=== PATIENT | female | born 1995 | race Caucasian/White ===

== ENCOUNTER 2019-08-06 13:19 | Emergency (ER) | payer OTHER, SELFPAY ==
[2019-08-06 13:20] VITALS: BP 120/77; PULSE 82; RESP 12; TEMP 36.6; O2SAT 96; BMI 37.0
--- NOTE | 2019-08-06 13:46 | CT_ITS ---
STUDY: CT ABDOMEN AND PELVIS WITHOUT CONTRAST REASON FOR EXAM: Female, 23 years old. Nausea, vomiting and diarrhea for 2 days. RADIATION DOSAGE (If Supplied By Facility): CTDIvol = ( 15.43 ) mGy, DLP = ( 770.95 ) mGycm TECHNIQUE: Transaxial images were obtained from the dome of the diaphragm to the symphysis pubis without oral contrast, and without intravenous contrast. Sagittal and coronal images were reconstructed. Individualized dose optimization techniques were used for this CT. COMPARISON: None. FINDINGS: The visualized lung bases are unremarkable. The visualized portions of the heart are within normal limits. Normal liver. Normal gallbladder and extrahepatic biliary system. Normal spleen. Normal pancreas. Normal bilateral adrenal glands. Is minimal fullness of the renal pelvises bilaterally. There is no evidence of urinary tract stones. Normal visualized stomach. Normal small intestine. There is fecal retention. The descending colon is mildly thickened likely due to underdistention. There is no evidence of acute diverticulitis. The appendix is visualized and appears normal. Normal abdominal aorta. Normal inferior vena cava. Normal retroperitoneum. Normal urinary bladder. There is a very small umbilical hernia containing fat. Normal osseous structures. CT/Abdomen/Pelvis without Cont IMPRESSION: No demonstrated acute process as described above. Electronically Signed: Jacques Vazquez MD at 15:25 EDT Tel , Service support ,
[2019-08-06 13:52] LABS: Absolute Lymphocyte Count 2.38 X10^3/uL (0.83-4.51); Absolute Neutrophil Count 3.7 X10^3/uL (2.0-7.7); Basophil# 0.06 X10^3/uL; Basophil% 0.9 % (0-1); Eosinophil# 0.09 X10^3/uL; Eosinophils% 1.3 % (0-5); Hematocrit 42.5 % (37-47); Hemoglobin 14.4 g/dL (12.0-15.0); Lymphocyte # 2.38 X10^3/ul (4.0); Lymphocyte % 35.6 % (19-41); Mean Corp Hgb Conc 33.9 g/dL (32-36); Mean Corpuscular Hgb 29.4 pg (27.0-32.0); Mean Corpuscular Volume 86.7 fL (81-99); Mean Platelet Vol. 9.2 fl (6.2-12.0); Monocyte# 0.42 X10^3/uL; Monocyte% 6.3 % (0-10); NRBC Flagged by Analyzer 0 % (0-5); Neutrophil # 3.72 X10^3/uL (2.7-7.7); Neutrophil % 55.6 % (47-70); Platelet Count 245 K/mm3 (150-450); RBC Distribution Width SD 40.6 fl (35.1-43.9); White Blood Count 6.7 K/mm3 (4.4-11.0)
--- NOTE | 2019-08-06 13:56 | ED.VIS.GEN ---
History of Present Illness Chief Complaint: Nausea/Vomiting/Diarrhea Informant: Patient Onset: Days Current Severity: Mild Narrative: Patient complains of diarrhea intermittent vomiting started a few days ago she was seen in urgent care and sent to the emergency department. No fever no cough no abdominal pain other than report occasional pain to the right side abdomen nothing triggers or alleviates it, normal bowel bladder habits menstrual cycle ended 2 days ago, denies any exposures to tainted food or sick individuals or antibiotics the diarrhea is watery no blood Past Medical History - Allergies and Home Meds Allergies/Adverse Reactions: Allergies No Known Allergies Allergy (Verified 08/06/19 13:20) Primary Care Physician: Randee Reinoso MD [Primary Care Provider] - Past Medical History: - - Negative except as above Smoking Status: Never smoker Review of Systems General: Denies: Chills, Fever, Sweats Eyes: Denies: Visual changes - bilaterally, Diplopia ENT: Denies: Rhinorrhea, Sore throat Cardiovascular: Denies: Chest pain, Palpitations Respiratory: Denies: Dyspnea, Cough, Dyspnea on exertion Gastrointestinal: Reports: Abdominal pain, Vomiting, Diarrhea. Denies: Nausea, Melena, Hematochezia Genitourinary: Denies: Dysuria, Hematuria, Frequency Musculoskeletal: Denies: Back pain, Extremity Pain Skin: Denies: Rash, Wounds Neurological: Denies: Headache, Weakness, Numbness Physical Exam Vital Signs/Narrative: Vital Signs Temp Pulse Resp BP Pulse Ox 08/06/19 13:20 97.9 F 82 12 120/77 96 General: Well nourished, Well developed, No Acute Distress Head: Normocephalic, Atraumatic Eyes: Perrl, EOMI ENT: Moist mucous membranes, No rhinorrhea Neck: Supple, Nontender Cardiovascular: Regular rate, Regular rhythm, No murmurs Respiratory: No distress, CTA bilaterally, Chest nontender Abdomen: Soft, Nontender, Nondistended, Normal bowel sounds, - - She subjectively came complains of an intermittent pain to the right side abdomen no rebound guarding organomegaly Back: Nontender, Normal Inspection Extremities: Nontender, No edema Skin: Normal color, No rash Neurological: Alert, Oriented x3, Cranial nerves II-XII grossly intact, Normal Strength, Normal Sensation Psychological: Normal affect, Normal Mood Diagnostic/Tx/Re-eval - Medical Decision Making Given all of the above and her complaint screening labs are obtained we will try to obtain stool sample, IV fluids CT The patient screening labs are all generally unremarkable see those reports CT abdomen pelvis shows fecal retention normal appendix no acute abnormality discussed all this with the patient and her family she understands bland diet advanced fluids follow-up with outpatient providers return for change in symptoms Home stable Impression final Diarrhea intermittent abdominal pain ED Disposition - Plan for ED Patient: Diagnosis: Diarrhea Instructions: DIET, Vomiting or Diarrhea [6yr-Adult], VOMITING AND DIARRHEA, Nonspecific (Adult) Referrals: Randee Reinoso MD [Primary Care Provider] -
[2019-08-06 14:05] LABS: ALB/GLOB Ratio 0.8 RATIO (0.9-2.4); AST(SGOT) 12 U/L (15-37); Alanine Aminotransfer ALT/SGPT 17 U/L (13-56); Albumin, Serum 3.6 g/dL (3.2-5.0); Alkaline Phosphatase 65 U/L (45-117); Anion Gap 7 (5-15); BUN 8 mg/dL (7-18); Bilirubin, Direct 0.12 mg/dL (0.00-0.30); Calcium,Total 8.9 mg/dL (8.5-10.1); Chloride 106 mmol/L (98-107); Creatinine, Serum 0.89 mg/dL (0.55-1.02); EST Glomerular Filtration Rate 84 mL/min (>60); Est Glom Filt Rate - Afr Amer 101 mL/min (>60); Estimated Creatinine Clearance 71.22 ml/min; Globulin 4.4 g/dL (2.2-4.2); Glucose 122 mg/dL (74-106); Lipase 100 U/L (73-393); Potassium 3.5 mmol/L (3.5-5.1); Sodium Level 138 mmol/L (136-145)
[2019-08-06] MEDS: Ondansetron 4 MG/2 ML Vial IV (14:20)
[2019-08-06] MEDS: morphine 8 MG/ML Syringe IV (14:20)
[2019-08-06] MEDS: 0.9% Normal Saline 1,000 ML 1000 ML IV (14:22)
[2019-08-06 14:26] LABS: Internal QC Validated? YES +Cl - CLEAR BKGD; Pregnancy, Serum, hCG Quali. NEGATIVE Negative
[2019-08-06 14:32] LABS: Red Blood Cells-Urine 0 SEEN /hpf (0-5)
[2019-08-06 14:34] LABS: Color, Urine Yellow (Yellow); Glucose, Dipstick Normal (Normal); Ketone-Dipstick Negative (Negative); Leukocyte Esterase-Dipstick Negative /ul (Negative); Nitrite-Dipstick Negative (Negative); Occult Blood-Urine Negative /ul (Negative); Protein-Dipstick 15 mg/dl (Negative); Specific Gravity, Urine 1.015 (1.002-1.030); Urine Bilirubin Dipstick Negative (Negative); Urine Clarity Clear (Clear); Urine Urobilinogen Normal (Normal); Urine pH 6.5 (5.0 - 8.0)
[2019-08-06 14:41] LABS: Squamous Epithelial Cells - UA 0-5 SEEN /hpf (5-10); White Blood Cells 0-5 SEEN /hpf (0-5)
[2019-08-06 14:42] LABS: Bacteria 1+ /hpf (None Seen); Mucous, Urine 2+ /hpf (<or=2+)
[2019-08-06 15:54] VITALS: BP 131/70; PULSE 68; RESP 14; O2SAT 99
== END 2019-08-06 15:55 | disposition home or self-care (01) ==
PROVIDERS: Emergency Provider Emergency Medicine; Family Provider Pediatrics; PCP Pediatrics
DX: R19.7 Diarrhea, unspecified (principal); R10.9 Unspecified abdominal pain; R11.10 Vomiting, unspecified
CPT/HCPCS: 74176; 80053; 81001; 82248; 83690; 84703; 85025; 96361; 96374; 96375; 99283; J7030; A4216; J2405

== ENCOUNTER 2022-05-23 13:55 | Inpatient (IN) | payer OTHER, SELFPAY ==
[2022-05-23] VITALS (23 sets, daily range): BP systolic 121–159; BP diastolic 62–102; PULSE 88–120; TEMP 36.2–36.5; O2SAT 80–100; BMI 41.5
[2022-05-23] MEDS: Lactated Ringers 1,000 ML 50 ML IV (16:20)
[2022-05-23 17:08] LABS: Absolute Lymphocyte Count 1.92 X10^3/uL (0.83-4.51); Basophil# 0.04 X10^3/uL; Basophil% 0.4 % (0-1); Hematocrit 33.9 % (37-47); Hemoglobin 10.7 g/dL (12.0-15.0); Lymphocyte # 1.92 X10^3/ul (0.83-4.51); Lymphocyte % 19.6 % (19-41); Mean Corp Hgb Conc 31.6 g/dL (32-36); Mean Corpuscular Hgb 23.8 pg (27.0-32.0); Mean Corpuscular Volume 75.3 fL (81-99); Mean Platelet Vol. 10.5 fl (6.2-12.0); Monocyte# 0.74 X10^3/uL; Monocyte% 7.6 % (0-10); NRBC Flagged by Analyzer 0 % (0-5); Neutrophil # 6.95 X10^3/uL (2.7-7.7); Platelet Count 231 K/mm3 (150-450); RBC Distribution Width CV 17.2 % (11.6-14.6); RBC Distribution Width SD 45.4 fl (35.1-43.9); White Blood Count 9.8 K/mm3 (4.4-11.0)
--- NOTE | 2022-05-23 18:25 | HP.PCM.OB_ITS ---
HPI - General General Date of Admission: 05/23/22 HPI Narrative PHI BRYANT, is a 26 F at 39.3 weeks gestation who presents for induction of labor. Patient was seen in office today and had elevated blood pressure with proteinuria. She had BPP completed and scored as 6/8. complicated by obesity- BMI >40 and history of depression. EFW 44%, GERHARD 20. Maternal Data Information MARINA Calculator Estimated Delivery Date Method Current WG Current Estimate 05/27/22 Manual 39w 3d PFSH PFSH Home Medications cholecalciferol (vitamin D3) 50 mcg (2,000 unit) capsule (Vitamin D3) 50 mcg PO DAILY deficient 05/23/22 [History Last Taken 05/23/22 06:00] fluoxetine 20 mg capsule 20 mg PO DAILY depression 05/23/22 [History Last Taken 05/23/22 06:00] [id number] 1 mg tablet tab PO 05/23/22 [History Last Taken 05/23/22 06:00] Allergy/AdvReac Type Severity Reaction Status Date / Time No Known Allergies Allergy Verified 08/06/19 13:20 Social History Smoking Status: Never smoker History Elective abortions Hx Para 0 Spontaneous abortions Hx # Term Pregnancies Ectopic pregnancies Hx # Pregnancies Multiple births # of living children Visit Details OB Flowsheet Initial Weight: Not Recorded Date -?-?-?-?-?-?-?-?-?-?-?-?- EGA Weight BP Urine Prot -?-?-?-?-?-?-?-?-?-?-?-?- Glucose FHR FuHt Pres Dilation -?-?-?-?-?-?-?-?-?-?-?-?- Effaced St Visit Note 05/23/22 -?-?-?-?-?-?-?-?-?-?-?-?- 39w 3d 226 lb 13.69 oz -?-?-?-?-?-?-?-?-?-?-?-?- -?-?-?-?-?-?-?-?-?-?-?-?- NST FHR Rate Baby A Baseline: 140 Variability:: Moderate Accelerations:: 15 x 15 Decelerations:: None NST Reactive:: Yes FHR Category:: Category I Uterine Activity:: None ROS Eyes Eyes: Denies blurry vision Cardiovascular Cardiovascular: Reports none; Denies chest pain at rest, chest pain with activity or dizziness Respiratory/Chest Respiratory/Chest: Denies cough or dyspnea Gastrointestinal Gastrointestinal: Reports none and other; Denies diarrhea or vomiting Genitourinary Genitourinary: Denies dysuria Musculoskeletal Musculoskeletal: Reports none Integumentary Integumentary: Reports none; Denies rash Neurologic Neurologic: Denies dizziness, headache(s) or other visual disturbances Psychiatric Psychiatric: Reports none Vital Signs Vital Signs Vital Signs: Weight Weight: 226 lb 13.69 oz Body Mass Index (BMI) 41.5 Physical Exam Const alert, oriented x3 and no apparent distress General Appearance: cooperative Orientation / Consciousness: awake Exam Limitations: no limitations HEENT normocephalic Head and Scalp: normal to inspection Eyes General Eye: normal appearance of both eyes Neck full ROM and no lymphadenopathy Lymph Lymphatic: no lymphadenopathy noted Chest inspection of chest normal Resp normal respiratory effort, normal air movement and clear to auscultation bilaterally Effort and Inspection: able to speak in complete sentences and symmetric chest movement Cardio regular rate and regular rhythm GI normal to inspection, nondistended, normoactive bowel sounds Manual OB Exam: presentation cephalic, dilated 2, effaced 80 and station - 1 Back/Spine normal ROM Extremity full ROM and no calf tenderness Skin no rashes or lesions noted General Skin Exam: no breakdown Neuro oriented x3 and CN's II-XII intact bilaterally Psych mental status grossly normal and thought process normal Labs Labs Labs: Blood Type Pending Antibody Screen Pending Hct 33.9 % (37-47) L Hgb 10.7 g/dL (12.0-15.0) L O+ Rubella - immune HB- neg HC- neg RPR- NR HIV- NR GBS- neg Assessment & Plan (1) 39 weeks gestation of : (2) Proteinuria affecting : (3) History of depression: (4) Elevated blood pressure complicating , antepartum: (5) Obesity affecting : PLAN: Plan Admit to labor and delivery Start IV and collect routine labs as well as PIH labs P/C ratio urine GBS negative Start Pitocin IV at 2 mu/min and increase per protocol Pain medication when indicated Anticipate A.R.O.M Dr. Giron involved with plan of care and is collaborating physician
[2022-05-23 19:18] LABS: AST(SGOT) 12 U/L (15-37); Alanine Aminotransfer ALT/SGPT 11 U/L (13-56); Creatinine, Serum 0.77 mg/dL (0.55-1.02); EST Glomerular Filtration Rate 96 mL/min (>60); Est Glom Filt Rate - Afr Amer 116 mL/min (>60); Estimated Creatinine Clearance 88.33 ml/min; Uric Acid 4.7 mg/dL (2.6-6.0)
[2022-05-23] MEDS: Oxytocin 30 units/NS 500 ml 30 UNITS/500 ML IV.SOLN IV (19:25)
[2022-05-23 19:57] LABS: Protein, Urine (Random) 37.4 mg/dL (<11.9); Protein:Creat Ratio 302 mg/g CRE (0-200)
[2022-05-23] MEDS: LACTATED RINGERS 500 ML 999 ML IV ×2 (20:28→22:55)
[2022-05-23] MEDS: fentaNYL 100 MCG/2 ML Ampul IV (20:51)
[2022-05-23] MEDS: fentaNYL-bupivacaine (epidural) 100 ML BAG EPIDURAL (21:30)
[2022-05-24] VITALS (27 sets, daily range): BP systolic 108–134; BP diastolic 59–83; PULSE 89–126; RESP 16–18; TEMP 36.2–37.2; O2SAT 96–99
[2022-05-24] MEDS: Lactated Ringers 1,000 ML 200 ML IV (01:41)
[2022-05-24] MEDS: fentaNYL-bupivacaine (epidural) 100 ML BAG EPIDURAL (01:43)
[2022-05-24] MEDS: Mag Hydrox/Al Hydrox/Simeth 30 ML UDC PO (03:37)
[2022-05-24] MEDS: Ondansetron 4 MG/2 ML Vial IV (04:04)
[2022-05-24] MEDS: 0.9% Saline Lock 10 ML Syringe IV ×2 (04:04→07:07)
[2022-05-24] MEDS: Oxytocin 30 units/NS 500 ml 30 UNITS/500 ML IV.SOLN 334 UNITS IV (04:06)
--- NOTE | 2022-05-24 04:55 | EX.PCM.OBRPT ---
Assessment & Plan (1) (spontaneous vaginal delivery): (2) Laceration, obstetrical, first degree: Maternal Data Information MARINA Calculator Estimated Delivery Date Method Current WG Current Estimate 05/27/22 Manual 39w 4d Vaginal Delivery Maternal Presentation Maternal Presentation: Medically Indicated Induction Maternal Presentation: at 39.3 weeks gestation that was sent over from office for induction of labor for elevated blood pressure, protein in urine, and obesity. Type of Induction: Pitocin Medical Reason for Induction: - (Elevated blood pressure reading, proteinuria, obesity) Operative Information Pre-Operative Diagnosis: Term gestation, proteinuria, obesity Post-Operative Diagnosis: Live male infant Surgery / Procedure Performed: Spontaneous Vaginal Delivery Type of Anesthesia: Epidural Drain: Nunn to straight drain Estimated Blood Loss: 300 Time of Delivery: 04:24 Findings Description of Procedure: Called to patient's room for delivery. With minimal maternal effort, head delivered followed immediately by anterior, posterior shoulders followed by remainder of infant body without any traction. Vigorous male placed on maternal abdomen and attended to by nursing staff. IV Pitocin started for active management of the third stage of labor. Cord blood collected out of 3 vessel cord and sent. Cord clamped and cut after 3 minute delay by patient's mother. Placenta delivered spontaneously and intact. First degree vaginal laceration and left labial laceration repaired in usual fashion with 3-0 Vicryl Rapide. Hemostasis obtained. Fundus firm 2 below U. Vaginal sweep completed. EBL 300 cc. APGARS 9/9. Patient and infant bonding at this time. Dr. Giron updated on delivery. Presentation: Vertex and KORINA Amniotic Membrane Rupture Type: Spontaneous Time of Membrane Rupture: 2019 Amniotic Fluid Description: Clear Placental Delivery Description: Spontaneous Placenta Disposition: [facility] Cord Vessel Description: 3 Vessels Cord Entanglement: None Infant A Gender: Male (1 minute): 9 (5 minute): 9 Delayed Cord Clamping: Yes Post Vaginal Delivery Medications Given After Delivery: IV Pitocin Episiotomy Description: None Laceration: Vaginal Extension/lac and 1st degree Complication Complications: None
--- NOTE | 2022-05-24 07:16 | NURSING ---
bedside report given to Amie Bray RN who is assuming care of pt at this time
[2022-05-24] MEDS: FLUoxetine 20 MG Capsule PO (10:49)
[2022-05-24] MEDS: Naproxen 500 MG Tablet PO ×2 (12:08→23:28)
[2022-05-24] MEDS: Acetaminophen 500 MG Tablet 1000 MG PO (15:58)
--- NOTE | 2022-05-24 16:32 | CASEMGMT ---
Addendum entered by Saritha Pablo 05/24/22 16:57: MOB was holding baby on her chest during assessment. Baby soundly sleeping. MOB had some flat affect noted during assessment but should be noted that MOB just gave this morning. Original Note: Social Work Assessment Reason for Referral: Hx of Anxiety and Depression MOB: Robert Sharma G/P: PNC: [facility] Control: Pt states that she has spoken to Naomi (OBGYN) about options and there was mention of pills. Baby: Boy named Winston Apgars: 08/08 Weight: 3230 G Cut Off Machine Helper: Randee Reinoso MOB states that she will do a combination of Breast and Bottle Feeding. MOB's other Children: None. MOB reports that this baby, Winston, is first baby. Housing: MOB states she has no concerns with housing. Pt states that she lives with her and VERO Sims and three cats. Transportation: MOB states that she has access to transportation and denied any concerns. Supplies: MOB states that she has all needed baby supplies Supports: MOB reports VERO Levi being good support. MOB states that her whole family is good support. MOB states that her Mom and Dad live about 10 minutes from here. Education: MOB states that she graduated High School and went to the [employer] for [employer]. Pt states that she has no learning difficulties. Employment: MOB states that she and VERO Levi work at [employer]. MOB states that she will take three weeks off and VERO reports he will take about a week off. MOB denied any financial concerns. Agency Involvement: Pt reports none. MOB Mental Health: MOB states that she takes Prozac for Depression. MOB reports that she did go to counseling before and has stopped for a little bit. MOB reports that she and Naomi have already talked about MOB getting linked up with counseling services again. MOB states she will continue to discuss this at her follow up appointment with Naomi. MOB states that she feels that her depression is well managed. MOB denied any history of suicidal/homicidal thoughts. Pt denied any current suicidal/homicidal thoughts. MOB AOD History: Pt denied FOB: Levi Salmon. Time Together: Since 2018. MOB reports that they knew each other longer than that. Involved at : Levi reporting to be involved in Baby' care Employment: [employer] Other Children: Levi states none FOB Mental Health: Levi denied any Mental Health History. FOB denied any Domestic Violence history. MOB also denied any concerns for Domestic Violence. FOB AOD History: Levi reports to have an occasional Beer. Levi Denied any other substances. RAVINDRA educated MOB on Shaken Baby, PPD, and Safe Sleeping. Pt voiced understanding. RAVINDRA provided pt with resources for Shaken Baby, PPD, Safe Sleeping. Plan: Home with Support from and additional family support. Pt states that she really likes her OBGYN and has already been talking to Naomi (OBGYN) about counseling and plans to follow up with Naomi. Saritha Pablo FRAMING CARPENTER, SCREEN CUTTER AND TRIMMER
[2022-05-24] MEDS: Senna/Docusate Sodium 1 Tablet PO (19:51)
[2022-05-25] VITALS (7 sets, daily range): BP systolic 106–120; BP diastolic 65–79; PULSE 95–105; RESP 14–16; TEMP 36.4–36.8; O2SAT 98–99
[2022-05-25] MEDS: Acetaminophen 500 MG Tablet 1000 MG PO ×2 (06:26→19:47)
--- NOTE | 2022-05-25 07:31 | PCM.PN.OB ---
Subjective Subjective Patient seen at bedside. Ambulating in room. with minimal support. Denies any headache, vision changes, dizziness, SOB, or CP. Lochia decreasing. Denies any pain. Desires discharge home today. Objective Data Objective Data Vital Signs: Vital Signs Temp Pulse Resp BP Pulse Ox 97.8 F 95 14 111/68 98 05/25/22 03:19 05/25/22 03:19 05/25/22 03:19 05/25/22 03:19 05/24/22 19:48 Oxygen Delivery Method Room Air Weight: 226 lb 13.69 oz Body Mass Index (BMI) 41.5 Intake & Output: Intake and Output for Last 24 Hours 05/23/22 05/24/22 05/25/22 23:59 23:59 23:59 Intake Total 1605.14 / 1605.14 1503.10 / 1503.10 Output Total 100 / 100 1620 / 1620 Balance 1505.14 / 1505.14 -116.90 / -116.90 Lab / Micro Data Result Diagrams: 05/23/22 16:20 05/23/22 18:45 Micro: Microbiology 05/23/22 16:40 Nasal Secretion SARS-CoV-2 Antigen (Rapid) - Final ROS Eyes Eyes: Denies blurry vision, change in vision or spots in vision ENT HEENT: Denies dizziness or headache(s) Cardiovascular Cardiovascular: Denies abdominal pain, chest pain or dyspnea Respiratory/Chest Respiratory/Chest: Denies cough, dyspnea, shortness of breath at rest or shortness of breath with exertion Gastrointestinal Gastrointestinal: Denies abdominal pain, diarrhea or vomiting Genitourinary Genitourinary: Denies change in urinary stream, difficulty urinating or dysuria Musculoskeletal Musculoskeletal: Reports none Integumentary Integumentary: Denies rash Neurologic Neurologic: Denies dizziness, headache(s), memory loss or weakness Physical Exam Const alert and no apparent distress General Appearance: cooperative and comfortable Exam Limitations: no limitations HEENT normocephalic Eyes General Eye: normal appearance of both eyes Neck full ROM General: normal visual inspection Chest Chest: symmetrical chest wall rise Resp normal respiratory effort and normal air movement Effort and Inspection: symmetric chest movement Auscultation: clear to auscultation bilaterally Cardio regular rate and regular rhythm GI normal to inspection, nondistended, normoactive bowel sounds Back/Spine normal ROM Extremity full ROM and no calf tenderness General Extremity: normal exam except as noted Skin no rashes or lesions noted Neuro CN's II-XII intact bilaterally Psych mental status grossly normal Assessment & Plan (1) Laceration, obstetrical, first degree: (2) (spontaneous vaginal delivery): PLAN: Plan PPD 1 Routine care Blood pressures within normal ranges Breast feeding support D/C home with follow up in office
--- NOTE | 2022-05-25 07:36 | DCINST_ITS ---
Discharge Instructions Diet Discharge Diet: No restrictions Activity Discharge Activity: May Shower May resume sexual activity in: 6-8 weeks Weight Bearing Status: Full weight bearing Dressing / Incision Call your doctor if you observe: Fever of 101 or Higher, Inability to urinate, Using more than 1 pad per hour, Calf discomfort and Uncontrolled pain Follow Up Care Please Follow Up With: Naomi Santizo CNM When: 2 weeks in office Test Results: Test results from this visit will be discussed in further detail at your follow- up appointment, if applicable. Discharge Plan Admission Admit Date/Time: 05/23/22 13:55 Primary Reason for Your Visit: Labor and Delivery Attending Provider: Naomi Santizo Primary Care Provider: Randee Reinoso Instructions Patient Instructions: After a Vaginal , : Caring for Yourself, : Latch On Steps Discharge Orders/Prescriptions Prescriptions: Continued [id number] 1 mg Tablet 1 tab PO DAILY fluoxetine 20 mg Capsule 20 mg PO DAILY Discontinued cholecalciferol (vitamin D3) [Vitamin D3] 50 mcg (2,000 unit) Capsule 50 mcg PO DAILY Referrals / Follow Up: Randee Reinoso MD [Primary Care Provider] - Disposition Disposition (needs filled in before D/C Order can be placed): Home, Self Care
[2022-05-25] MEDS: FLUoxetine 20 MG Capsule PO (08:16)
[2022-05-25] MEDS: Senna/Docusate Sodium 1 Tablet PO (08:17)
[2022-05-26 01:58] VITALS: O2SAT 83
[2022-05-26 01:59] VITALS: BP 115/65; PULSE 95
[2022-05-26 02:10] VITALS: BP 115/65; PULSE 99; RESP 16; TEMP 36.7; O2SAT 99
--- NOTE | 2022-05-26 05:27 | PCM.PN.BLA ---
Progress Note Patient seen at bedside. Infant had to stay and be under lights due to elevated bilirubin level. Plan is discharge home today. Patient feeling good. Denies any pain. Ambulating and voiding without difficulty. without support. Physical Exam Const alert and no apparent distress General Appearance: cooperative and comfortable Exam Limitations: no limitations HEENT normocephalic Eyes General Eye: normal appearance of both eyes Neck full ROM General: normal visual inspection Chest Chest: symmetrical chest wall rise Resp normal respiratory effort and normal air movement Effort and Inspection: symmetric chest movement Auscultation: clear to auscultation bilaterally Cardio regular rate and regular rhythm GI normal to inspection, nondistended, normoactive bowel sounds Back/Spine normal ROM Extremity full ROM and no calf tenderness General Extremity: normal exam except as noted Skin no rashes or lesions noted Neuro CN's II-XII intact bilaterally Psych mental status grossly normal Assessment & Plan Assessment/Plan (1) Laceration, obstetrical, first degree: (2) (spontaneous vaginal delivery): PLAN: Plan PPD 2 support Routine care Discharge home with follow up in office
[2022-05-26 09:22] VITALS: BP 122/79; PULSE 99; RESP 16; TEMP 36.6; O2SAT 98
[2022-05-26 09:25] VITALS: BP 122/79; PULSE 120; PULSE 123; O2SAT 98
== END 2022-05-26 10:35 | disposition home or self-care (01) | DRG 807 ==
PROVIDERS: Admitting Provider Advanced Practice Midwife; PCP Pediatrics; Visit Provider Advanced Practice Midwife
DX: O12.14 Gestational proteinuria, complicating childbirth (principal); Z37.0 Single live birth; O99.344 Other mental disorders complicating childbirth; F32.A Depression, unspecified; O99.214 Obesity complicating childbirth; Z3A.39 39 weeks gestation of pregnancy; Z79.899 Other long term (current) drug therapy; O70.0 First degree perineal laceration during delivery; O26.893 Other specified pregnancy related conditions, third trimester; R03.0 Elevated blood-pressure reading, without diagnosis of hypertension
CPT/HCPCS: 59025; 59050; 82565; 82570; 84156; 84450; 84460; 84550; 85025; 86850; 86900; 86901; 87426; 99218; J7120; A4216; G0378; J2405